=== PATIENT | male | born 1970 | race Caucasian/White ===

== ENCOUNTER → 2016-08-11 | Outpatient (CLI) | payer OTHER ==
[~2016-08-11] MED LIST: ACEPHEN650 MG RC; ACETAMINOPHEN PO; ALAVERT10 MG GT; ANTI-DANDRUFF251 ML; AUGMENTIN875 MG PO; BACLOFEN10 MG PO; BACTROBAN15 GM TOP; BENZOYL PEROXIDE TP; BISACODYL10 MG/SUPP PR; CENTRUM PO; DANTRIUM50 MG GT; DANTRIUM50 MG PO; DEEP SEA NASAL SPRAY IH; DEPAKOTE PO; DIASTAT ACDL RC; DIASTAT10 MG PR; GENTLE LAXATIVE10 MG RC; HYDROCORTISONE30 G2 EXT; KCL GT; KEPPRA1000 MG GT; KEPPRA1000 MG PO; KEPPRA500 M2 GT; KEPPRA500 M2 PO; KLOR-CON GT; LACTULOSE10 G/15 M1 GT; LACTULOSE10 G/15 M1 PO; LAMICTAL ODT200 MG PO; LAMOTRIGINE200 MG GT; METRONIDAZOLE GT; MILK OF MAGNESIA GT; MILK OF MAGNESIA PO; MULTIVITAMIN WITH MINERALS GT; MY FAVORITE MU237 ML GT; NEXIUM40 MG/PACK GT; OCEAN45 ML; RISAMINE OINTM113 GM TP; SELSUN BLUE 1%118 ML TP; SENNA8.6 M1 GT; SENOKOT TO GO8.6 MG PO; TOPAMAX50 MG GT; TOPAMAX50 MG PO; TYLENOL325 M1 PO; VALPROIC A250 MG/51 GT; VALPROIC A250 MG/52 GT; VITAMIN D1000 UNI2 GT; ZYRTEC10 M4 PO; [UNRECOGNIZED DRUG - OTHER]
--- NOTE | ~2016-08-11 | EKG ---
PATIENT: OSWALD BRUCE UNIT #: [id number] Ventricular Rate: 77 BPM Atrial Rate: 77 BPM P-R Interval: 172 ms QRS Duration: 100 ms Q-T Interval: 398 ms QTC Calculation(Bezet): 450 ms P Holt: 50 degrees Calculated R Holt: -91 degrees Calculated T Holt: 58 degrees Diagnosis Line: Normal sinus rhythm with sinus arrhythmia Diagnosis Line: Right superior axis deviation Baseline wander Diagnosis Line: Inferior-posterior infarct (cited on or before Diagnosis Line: 04-MAR-2015) Diagnosis Line: Abnormal ECG Diagnosis Line: When compared with ECG of 19-JUL-2016 10:58, Diagnosis Line: No significant change was found Diagnosis Line: Confirmed by FANNIE PINTO MD ([id number]) on 08/11/2016 Diagnosis Line: 6:28:10 PM INTERPRETING MD: BLAIR JOHNSON
== END | disposition home or self-care (01) ==
LOC: CECH 13:45
DX: I51.7 Cardiomegaly (principal); I50.9 Heart failure, unspecified; I49.9 Cardiac arrhythmia, unspecified; R94.31 Abnormal electrocardiogram [ECG] [EKG]
CPT/HCPCS: 93005; 93306

== ENCOUNTER → 2016-10-31 | Outpatient (CLI) | payer OTHER | END | disposition home or self-care (01) | LOC: CSSDAY 10:00 | DX: M81.0 Age-related osteoporosis without current pathological fracture (principal) | CPT/HCPCS: 96372; J0897 ==